=== PATIENT | female | born 1980 | race Caucasian/White ===

== ENCOUNTER → 2017-04-16 | Outpatient (CLI) | payer OTHER ==
--- NOTE | 2017-04-16 22:00 | US ---
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 enlarged gland GLAND SIZE: Right Lobe: 5.6 x 1.8 x 1.5 cm Overall Parenchyma: heterogenous Left Lobe: 4.6 x 1.7 x 1.4 cm Overall Parenchyma: heterogeneous Isthmus Thickness: 0.4 cm NODULES RIGHT: # of nodules measured on right: 1 1. 0.7 X 0.7 x 0.6 cm hypoechoic solid nodule at the mid pole with well-defined margins. This nodu le is wider than tall and shows intranodular vascularity. Prior size: [employer] ACCOUNT[employer] LEFT: # of nodules measured on left: 0 ISTHMUS: # of nodules measured in the isthmus: 0 Bilateral neck scanned, no evidence of lymphadenopathy. There is redemonstration of heterogeneous thyroid gland which is prominent to slightly enlarged in si ze with 7 mm hypoechoic nodule marked infarct right thyroid lobe on current study. Smaller nodules on prior exam are less well seen on current study. No new suspicious nodules are evident. IMPRESSION: Heterogeneous thyroid upper limits of normal to slightly enlarged in size with less pronounced nodule s on current study. No new greater than 1 cm solid or cystic nodules are seen bilaterally.
== END | disposition home or self-care (01) ==
LOC: RADUSWWP 16:02
PROVIDERS: ATTEND Obstetrics & Gynecology
DX: E01.0 Iodine-deficiency related diffuse (endemic) goiter (principal)
CPT/HCPCS: 36415; 76536; 84432; 84439; 84443; 84481

== ENCOUNTER → 2017-09-09 | Outpatient (CLI) | payer OTHER ==
--- NOTE | 2017-09-10 14:21 | US ---
EXAMINATION TYPE: US pelvic complete DATE OF EXAM: 09/09/2017 COMPARISON: US 09/05/2012 CLINICAL HISTORY: R10.9 Abdominal/pelvic pain. Patient on Depo shot, no period in 3 years due to emil h control use. TECHNIQUE: . Transabdominal sonographic images of the pelvis were acquired. Date of LMP: 3 years ago EXAM MEASUREMENTS: Uterus: 9.3 x 3.4 x 4.3 cm Endometrial Stripe: 0.5 cm Right Ovary: 2.1 x 1.7 x 2.1 cm Left Ovary: 2.5 x 1.5 x 2.1 cm 1. Uterus: Anteverted wnl 2. Endometrium: wnl 3. Right Ovary: wnl 4. Left Ovary: wnl 5. Bilateral Adnexa: wnl 6. Posterior cul-de-sac: wnl IMPRESSION: 1. Normal pelvic ultrasound
== END | disposition home or self-care (01) ==
LOC: RADUSWWP 16:00
PROVIDERS: ATTEND Internal Medicine
DX: R10.9 Unspecified abdominal pain (principal)
CPT/HCPCS: 76856

== ENCOUNTER → 2019-12-27 | Outpatient (CLI) | payer OTHER ==
--- NOTE | 2019-12-27 16:19 | US ---
EXAMINATION TYPE: US venous doppler duplex LE LT DATE OF EXAM: 12/27/2019 4:04 PM COMPARISON: NONE CLINICAL HISTORY: 39-year-old female M79.662 PAIN LT LOWER LIMB, R22.42 SWELLING LT LOWER LEG. Pain a nd swelling since surgery on November 01, no history of DVT SIDE PERFORMED: left TECHNIQUE: The lower extremity deep venous system is examined utilizing real time linear array sonog jacqueline with graded compression, doppler sonography and color-flow sonography. FINDINGS: VESSELS IMAGED: External Iliac Vein (EIV) Common Femoral Vein Deep Femoral Vein Greater Saphenous Vein * Femoral Vein Popliteal Vein Small Saphenous Vein * Proximal Calf Veins (* superficial vessels) Left Leg: Negative for DVT IMPRESSION: No evidence for DVT within the left lower extremity imaged from the groin to the upper calf.
== END | disposition home or self-care (01) ==
LOC: RADUSWWP 15:40
PROVIDERS: ATTEND Internal Medicine
DX: M79.662 Pain in left lower leg (principal); R22.42 Localized swelling, mass and lump, left lower limb

== ENCOUNTER → 2020-01-18 | Outpatient (CLI) | payer OTHER ==
--- NOTE | 2020-01-19 08:40 | US ---
EXAMINATION TYPE: US pelvis complete transvag DATE OF EXAM: 01/18/2020 COMPARISON: 09/09/2017 CLINICAL HISTORY: 39-year-old female N93.8 abnormal uterine and vaginal bleeding. TECHNIQUE: Transabdominal sonographic images of the pelvis were acquired. Transvaginal sonographic images were medically necessary to better assess the following anatomy: Endometrium Date of LMP: Irregular cycles, patient states she has 2 cycles a month FINDINGS: EXAM MEASUREMENTS: Uterus: 9.5 x 4.1 x 5.0 cm Endometrial Stripe: Not well delineated, unable to accurately measure Right Ovary: 3.0 x 2.4 x 2.5 cm Left Ovary: 3.2 x 2.7 x 3.0 cm 1. Uterus: Anteverted with Heterogeneous myometrium 2. Endometrium: Multiple small cystic areas visualized within and adjacent to the endometrium. 3. Right Ovary: Cystic area visualized measuring 2.4 x 2.0 x 2.3 cm 4. Left Ovary: Cystic area visualized 2.2 x 1.7 x 1.9 cm 5. Bilateral Adnexa: wnl 6. Posterior cul-de-sac: wnl IMPRESSION: 1. Tiny cystic areas along and adjacent to the endometrium. Findings may be seen with adenomyosis. Co nsider female pelvic MRI to better assess the junctional anatomy if indicated. 2. The endometrial stripe is not well delineated and is unable to be accurately measured by ultrasoun d. It does not appear to be abnormally thickened. 3. A dominant follicle or functional cyst in each ovary measuring up to 2.4 cm.
== END | disposition home or self-care (01) ==
LOC: RADUSWWP 15:33
PROVIDERS: ATTEND Obstetrics & Gynecology
DX: N85.8 Other specified noninflammatory disorders of uterus (principal); N83.292 Other ovarian cyst, left side; N83.291 Other ovarian cyst, right side
CPT/HCPCS: 76830; 76856

== ENCOUNTER 2020-03-02 08:28 | Day surgery (SDC) | payer OTHER ==
[2020-02-29 18:02] VITALS: BMI 41.6
--- NOTE | 2020-03-01 17:03 | P.HPOB ---
History of Present Illness H&P Date: 03/01/20 Chief Complaint: Dysfunctional uterine bleeding Dulce is a 39-year-old female with dysfunctional uterine bleeding. She is scheduled for a D&C and hysteroscopy to try and elucidate the cause of her heavy bleeding. She did have an ultrasound prior to this that was nondiagnostic for the endometrium. Risks/benefits/alternatives were reviewed with patient in detail and all questions were answered for her prior to proceeding to the operative room. On physical exam vital signs are stable and afebrile. Heart regular, lungs clear, extremities without pain. Abdomen soft and positive bowel sounds are noted. Pelvic exam is otherwise unremarkable. Past Medical History Past Medical History: Asthma, GERD/Reflux, Hyperlipidemia, Musculoskeletal Disorder Additional Past Medical History / Comment(s): No asthma prob 2009. Lt knee surgery, ongoing pain. Irreg menses. History of Any Multi-Drug Resistant Organisms: None Reported Past Surgical History: Orthopedic Surgery Additional Past Surgical History / Comment(s): Right ganglion cyst, jesica carpal tunnel. Lt knee scope 11/02/19 Past Anesthesia/Blood Transfusion Reactions: No Reported Reaction Smoking Status: Current every day smoker - Past Family History Mother Family Medical History: Cancer Additional Family Medical History / Comment(s): ovarian cancer Sister(s) Family Medical History: Cancer Additional Family Medical History / Comment(s): ovarian cancer Medications and Allergies Home Medications Medication Instructions Recorded Confirmed Type Ibuprofen [Motrin] 800 mg PO Q8HR PRN #20 tab 05/05/16 02/29/20 Rx Omeprazole Magnesium [PriLOSEC OTC] 20 mg PO DAILY PRN 02/29/20 02/29/20 History Allergies Allergy/AdvReac Type Severity Reaction Status Date / Time metronidazole [From Flagyl] Allergy Vomiting Verified 02/29/20 17:46 Metronidazole HCl Allergy Vomiting Verified 02/29/20 17:46 [From Flagyl] Exam Osteopathic Statement: *. No significant issues noted on an osteopathic structural exam other than those noted in the History and Physical/Consult. - OBG Physical Exam Breast: both: normal (no masses) Abdomen: bowel sounds normal, no diffuse tenderness, no bruit present, no guarding noted, no hepatomegaly, no splenomegaly, no mass Vulva: both: normal Vagina: normal moisture, no discharge Cervix: no lesion, no discharge Uterus: normal size, normal contour Adnexa: both: normal Anus/Rectum: normal perianal skin, no rectal mass, no hemorrhoids, heme negative
[~2020-03-02 08:28] MED LIST: DEXAMETHASONE SOD PHOSPHATE 10 MG/ML 1 ML VIAL IV ONE; HYDROmorphone 0.5 MG/0.5 ML SYRINGE IVP PRN; KETOROLAC 15 MG/ML 1 ML VIAL IVP SCH; LACTATED RINGERS 1,000 ML IV SCH; LIDOCAINE 1% (10MG/ML) FOR IV START INTRADERMA PRN; METOCLOPRAMIDE 5 MG/ML 2 ML VIAL IVP PRN; ONDANSETRON 4 MG/2 ML VIAL IVP ONE; Pre Op ABX Message 1 EACH MISC MISCELLANE ONE; SCOPOLAMINE 1.5MG/72HR PATCH TRANSDERM ONE
[2020-03-02] MEDS ORDERED: MIDAZOLAM 2 MG/2 ML VIAL ONE (09:25)
[2020-03-02] MEDS ORDERED: PROPOFOL 10 MG/ML 20 ML VIAL IV ONE (09:25)
[2020-03-02] MEDS ORDERED: fentaNYL (PF) 50 MCG/ML 2 ML AMP ONE (09:25)
[2020-03-02] MEDS ORDERED: SUCCINYLCHOLINE CHLORIDE 100 MG/5 ML SYR IV ONE (09:25)
[2020-03-02] MEDS ORDERED: ROCURONIUM BROMIDE 10 MG/ML 5 ML VIAL IV ONE (09:25)
[2020-03-02] MEDS ORDERED: LIDOCAINE 1% INJ 10MG/ML (20 ML MDV) ONE (09:25)
[2020-03-02] MEDS ORDERED: KETOROLAC 15 MG/ML 1 ML VIAL ONE (09:25)
--- NOTE | 2020-03-02 10:08 | P.OP ---
Date of Procedure: 03/02/20 Preoperative Diagnosis: Dysfunctional uterine bleeding Postoperative Diagnosis: Same Procedure(s) Performed: D&C with hysteroscopy Anesthesia: ANH Surgeon: Remy Medina Estimated Blood Loss (ml): 3 Pathology: other (Uterine curettings) Condition: stable Disposition: same day Operative Findings: Pathology pending Description of Procedure: Dulce was taken to the operating suite where general anesthetic was found be adequate. She was prepped and draped in the normal sterile fashion and placed in dorsal lithotomy position. Initially a weighted speculum was inserted in vagina and the anterior lip of the cervix identified grasped with Allis clamp an d cervix was dilated. Camera was then inserted. No gross pathology was noted therefore camera was removed and sharp curettings of endometrium were obtained. This tissue was all collected, placed on Telfa, and sent to pathology for evaluation. All incidents were then removed. Sponge, lap, needle counts were all correct 2. Patient was then taken to the recovery room in stable and satisfactory condition. Plan - Discharge Summary Discharge Rx Participant: No New Discharge Prescriptions: New Ibuprofen [Motrin] 600 mg PO Q6HR PRN #30 tab PRN Reason: Pain No Action Ibuprofen [Motrin] 800 mg PO Q8HR PRN #20 tab PRN Reason: Pain Omeprazole Magnesium [PriLOSEC OTC] 20 mg PO DAILY PRN PRN Reason: GERD Discharge Medication List Ibuprofen [Motrin] 800 mg PO Q8HR PRN #20 tab 05/05/16 [Rx] Omeprazole Magnesium [PriLOSEC OTC] 20 mg PO DAILY PRN 02/29/20 [History] Ibuprofen [Motrin] 600 mg PO Q6HR PRN #30 tab 03/02/20 [Rx] Follow up Appointment(s)/Referral(s): Remy Medina DO [Doctor of Osteopathic Medicine] - 10 Days Activity/Diet/Wound Care/Special Instructions: No heavy lifting, limit stairs and driving, and pelvic rest. If any high temperatures, heavy bleeding, or severe pain call my office Discharge Disposition: HOME SELF-CARE
[2020-03-02 10:12] VITALS: TEMP 97.4
[2020-03-02 11:12] VITALS: RESP 18
[2020-03-02 11:33] VITALS: BP 130/69; PULSE 74
== END 2020-03-02 11:45 | disposition home or self-care (01) ==
LOC: OR 08:28
PROVIDERS: ATTEND Obstetrics & Gynecology
DX: N93.8 Other specified abnormal uterine and vaginal bleeding (principal); N92.6 Irregular menstruation, unspecified; E78.5 Hyperlipidemia, unspecified; J45.909 Unspecified asthma, uncomplicated; F41.9 Anxiety disorder, unspecified; F32.9 Major depressive disorder, single episode, unspecified; F17.200 Nicotine dependence, unspecified, uncomplicated; K21.9 Gastro-esophageal reflux disease without esophagitis; Z88.1 Allergy status to other antibiotic agents; Z80.41 Family history of malignant neoplasm of ovary
CPT/HCPCS: 81025; 88305; 58558; J2250; J1100; J2765; J2405; J2001; J3010; J1885; J0330; J2704; J1170

== ENCOUNTER → 2021-02-23 | Outpatient (CLI) | payer OTHER | END | disposition home or self-care (01) | LOC: LABWHC1 15:47 | PROVIDERS: ATTEND Obstetrics & Gynecology | DX: N92.6 Irregular menstruation, unspecified (principal) | CPT/HCPCS: 36415; 84702 ==

== ENCOUNTER → 2021-05-21 | Outpatient (CLI) | payer OTHER ==
--- NOTE | 2021-05-21 08:58 | US ---
EXAMINATION TYPE: US pelvis complete transvag DATE OF EXAM: 05/21/2021 COMPARISON: US CLINICAL HISTORY: R10.2 Pelvic pain, Amenorrhea N91.2. Patient stated had 4 months without menstrual cycle then had May LMP TECHNIQUE: Transvaginal (TV) and Transabdominal (TA) . Transabdominal sonographic images of the pel vis were acquired. Transvaginal sonographic images were medically necessary to better assess the fol lowing anatomy: endometrium and right ovary; ; HT5'7, [id number]. Date of LMP: 05/11/2021 EXAM MEASUREMENTS: Uterus: 11.4 x 6.1 x 5.2 cm Endometrial Stripe: 1.1 cm Right Ovary: 3.4 x 1.1 x 1.4 cm Left Ovary: 2.9 x 2.5 x 3.0 cm 1. Uterus: Anteverted; heterogeneous appearance to myometrium; multiple Nabothian Cysts seen in cerv ix and in NYLA with largest = 0.7 x 0.6 x 0.4cm. 2. Endometrium: multiple endometrial cysts seen with largest = 0.3 x 0.4 x 0.3cm; endometrial thickn ess is wnl for Day 10 LMP. 3. Right Ovary: multifollicular with largest as exophytic cyst = 1.4 x 1.5 x 1.4cm 4. Left Ovary: multifollicular with couple of prominent cysts seen: 1.4 x 1.3 x 1.2cm medially and a nother = 1.3 x 1.3 x 0.8cm. 5. Bilateral Adnexa: wnl 6. Posterior cul-de-sac: wnl IMPRESSION: 1. Bilateral ovarian cysts. 2. Heterogenous appearance to the endometrial canal. Endometrial thickness is appropriate.
== END | disposition home or self-care (01) ==
LOC: RADUSWWP 07:10
PROVIDERS: ATTEND Internal Medicine
DX: N83.201 Unspecified ovarian cyst, right side (principal); N83.202 Unspecified ovarian cyst, left side; N85.8 Other specified noninflammatory disorders of uterus
CPT/HCPCS: 76830; 76856

== ENCOUNTER → 2022-01-02 | Outpatient (CLI) | payer OTHER ==
[2022-01-03 02:31] LABS: Follicle Stimulating Hormone 4.3 mIU/mL; HCG,Quantitative Serum <3.0 (0.0-6.0)
== END | disposition home or self-care (01) ==
LOC: LABWHC1 15:52
PROVIDERS: ATTEND Obstetrics & Gynecology
DX: N92.0 Excessive and frequent menstruation with regular cycle (principal)
CPT/HCPCS: 36415; 83001; 84146; 84443; 84702

== ENCOUNTER → 2022-01-02 | Outpatient (CLI) | payer OTHER ==
--- NOTE | 2022-01-03 08:04 | US ---
EXAMINATION TYPE: US pelvis complete transvag DATE OF EXAM: 01/02/2022 COMPARISON: 05/21/2021 CLINICAL HISTORY: 41-year-old female N92.0 EXCESSIVE AND FREQ MENSTRUATION. TECHNIQUE: Transabdominal sonographic images of the pelvis were acquired. Transvaginal sonographic i mages were medically necessary to better assess the following anatomy: ovaries Date of LMP: October 2021 FINDINGS: EXAM MEASUREMENTS: Uterus: 10.1 x 4.6 x 5.7 cm Endometrial Stripe: 0.8 cm Right Ovary: unable to visualize Left Ovary: 4.8 x 3.9 x 3.7 cm with a volume of 36.6 mL (increased from 11.4 mL, previously). 1. Uterus: Anteverted. The myometrium is heterogeneous. There are tiny cervical nabothian cysts. 2. Endometrium: wnl 3. Right Ovary: Obscured by overlying bowel gas 4. Left Ovary: cystic areas noted, largest = 2.9 x 2.6 x 2.8cm (largest previously measured 1.4 cm) 5. Bilateral Adnexa: wnl 6. Posterior cul-de-sac: wnl IMPRESSION: 1. Heterogeneous myometrium may be technical or could reflect diffuse small fibroid change or adenomy osis. 2. Unable to visualize the right ovary. 3. Left ovary enlarged today with a volume of 37 mL (versus 11.4 mL, previously) secondary to underly ing cysts, largest measuring 2.9 cm (largest previously measured 1.4 cm). These may reflect prominent follicular change and dominant follicles. Follow-up ultrasound in 6-8 weeks to ensure involution.
== END | disposition home or self-care (01) ==
LOC: RADUSWWP 16:13
PROVIDERS: ATTEND Obstetrics & Gynecology
DX: N92.0 Excessive and frequent menstruation with regular cycle (principal); N88.8 Other specified noninflammatory disorders of cervix uteri
CPT/HCPCS: 76830; 76856

== ENCOUNTER → 2022-02-13 | Outpatient (CLI) | payer OTHER ==
[2022-02-13 11:25] VITALS: BP 169/93; PULSE 74; RESP 16; TEMP 97.8
--- NOTE | 2022-02-13 12:40 | P.PAINCN ---
History of Present Illness - Reason for Consult Consult date: 02/13/22 - History of Present Illness This is 41 years old female who was referred to [facility] pain clinic for evaluation , she had a chronic history of severe neck pain and headache, and she was diagnosed with occipital neuralgia and she was referred for occipital nerve block bilaterally, patient reported that her symptoms started more than a year ago and is constant and increased with any neck movement, she denies any initiating event and she tried [id number] Excedrin and Tylenol and Motrin without any significant benefit, and a few weeks ago she started having some right-sided facial numbness and tingling sensation, denies any motor or sensory deficit she denies any visual changes she denies any aura, she denies any hearing loss Past Medical History Past Medical History: Asthma, GERD/Reflux, Hyperlipidemia, Musculoskeletal Disorder Additional Past Medical History / Comment(s): No asthma prob 2009. Lt knee surgery, ongoing pain. Irreg menses. History of Any Multi-Drug Resistant Organisms: None Reported Past Surgical History: Orthopedic Surgery Additional Past Surgical History / Comment(s): Right ganglion cyst, jesica carpal tunnel. Lt knee scope 11/02/19 Past Anesthesia/Blood Transfusion Reactions: No Reported Reaction Smoking Status: Current every day smoker - Past Family History Mother Family Medical History: Cancer Additional Family Medical History / Comment(s): ovarian cancer Sister(s) Family Medical History: Cancer Additional Family Medical History / Comment(s): ovarian cancer Medications and Allergies Home Medications Medication Instructions Recorded Confirmed Type Ibuprofen [Motrin] 800 mg PO Q8HR PRN #20 tab 05/05/16 02/13/22 Rx Omeprazole Magnesium [PriLOSEC OTC] 20 mg PO DAILY PRN 02/29/20 02/13/22 History Ibuprofen [Motrin] 600 mg PO Q6HR PRN #30 tab 03/02/20 02/13/22 Rx Acetaminophen [Tylenol Extra 500 mg PO Q12HR 02/13/22 02/13/22 History Strength] Aspirin/Acetaminophen/Caffeine 1 each PO Q12HR 02/13/22 02/13/22 History [Excedrin Migraine Caplet] Allergies Allergy/AdvReac Type Severity Reaction Status Date / Time metronidazole [From Flagyl] Allergy Vomiting Verified 02/13/22 11:25 Metronidazole HCl Allergy Vomiting Verified 02/13/22 11:25 [From Flagyl] Physical Exam Vitals: Vital Signs Temp Pulse Resp BP Pulse Ox 02/13/22 11:18 97.8 F 74 16 169/93 96 Intake and Output 02/12/22 02/13/22 02/13/22 22:59 06:59 14:59 Other: Weight 118.388 kg Physical Examinations : -Constitutiona : Cooperative , not in acute distress . -HEENT : nech : supple , no Lymphadenopathy , normal thyroid size . : eyes : no ptosis , no icterus, no photophobia . - neurologic : Cranial nerve II to XII intact , no focal neurological deffecit . -psychatric : alert , oriented X 3 , appropriate affect , intact judgment and insight . -Lymphatic : no Lymphadenopathy . - musculoskeltal : Cervical Spine motor stregnth in the deltoid and biceps, normal right side , normal Left side motor stregnth biceps and the wrist extensors normal right side ,normal left side . motor stregnth in the triceps muscle . normal Right side , normal Left side deep tendon reflexes normal at the biceps , normal at Brachioradialis , normal at triceps. cervical facet loading test: Positive Bilaterally tenderness over the occipital nerves bilaterally. Decreased sensation in the right side of the face Lumber spine moter stegnth lower extremities ,thigh and legs 5/5 Right side , 5/5 Left side y Results Comments: MRI of the brain = review and it was not significant for any intracranial abnormalities. Assessment and Plan Plan: Assessment and plan=1-occipital neuralgia bilaterally. 2-cervicogenic headache. 3-cervical spondylosis. she could benefit from bilateral occipital nerve block. Procedure risk and benefits and alternatives discussed with the patient she agreed with the preceding Time with Patient: Greater than 30 PQRS Measure Charge Sheet Mode of Arrival: Ambulatory - Pain Location Bilateral Head Non-Pharmacological Interventions: Chiropractic Treatment, Heat, Home Exercise, Ice, Inactivity, Reduce Environmental Stimuli, Relaxation Technique, Stretching Pharmacological Interventions: PRN Medication PQRS Narrative: Smoking Status Current every day smoker Blood Pressure 169/93 Pain Intensity [Bilateral Head 5 ] Scale Used Numeric (1 - 10) Hx Alcohol Use (MH) No Home Medications: Ambulatory Orders Ibuprofen [Motrin] 800 mg PO Q8HR PRN #20 tab 05/05/16 Omeprazole Magnesium [PriLOSEC OTC] 20 mg PO DAILY PRN 02/29/20 Ibuprofen [Motrin] 600 mg PO Q6HR PRN #30 tab 03/02/20 Acetaminophen [Tylenol Extra Strength] 500 mg PO Q12HR 02/13/22 Aspirin/Acetaminophen/Caffeine [Excedrin Migraine Caplet] 1 each PO Q12HR 02/13/22
== END ==
LOC: PNWHC3 10:52
PROVIDERS: ATTEND Specialist
DX: M54.81 Occipital neuralgia (principal); M47.812 Spondylosis without myelopathy or radiculopathy, cervical region; F17.200 Nicotine dependence, unspecified, uncomplicated; J45.909 Unspecified asthma, uncomplicated; E78.5 Hyperlipidemia, unspecified; Z88.1 Allergy status to other antibiotic agents
CPT/HCPCS: 99211

== ENCOUNTER 2022-03-14 11:49 | Day surgery (SDC) | payer OTHER ==
[2022-03-12 15:00] VITALS: BMI 40.7
[2022-03-14 13:11] VITALS: TEMP 97.7
[2022-03-14] MEDS ORDERED: LACTATED RINGERS 1,000 ML IV ONE (13:20)
[2022-03-14] MEDS ORDERED: fentaNYL (PF) 50 MCG/ML 2 ML AMP ONE (13:30)
[2022-03-14] MEDS ORDERED: MIDAZOLAM 2 MG/2 ML VIAL ONE (13:30)
[2022-03-14] MEDS ORDERED: ROPIVACAINE 5 MG/ML 20 ML AMPULE ONE (13:30)
[2022-03-14] MEDS ORDERED: methylPREDNISolone ACETATE 80 MG/ML 1 ML VIAL ONE (13:30)
--- NOTE | 2022-03-14 13:40 | P.PCN ---
Date of Procedure: 03/14/22 Procedure(s) Performed: Preoperative diagnoses= 1- Greater occipital neuralgia. 2-cervicogenic headache. 3-cervical spondylosis Postoperative diagnoses= same as preoperative diagnosis. Procedure= Bilateral Greater occipital nerve block Anesthesia= moderate sedation with Versed 2 mg and fentanyl 100 micrograms Sedation start time : 1331 . Sedation end time : 1339 . Estimated blood loss=minimal. Procedure indication= the patient had a history of severe chronic neck pain ,and headache, diagnosed with occipital neuralgia exam was positive for severe tenderness over the occipital nerve bilaterally, she will be a good candidate occipital nerve block, patient failed conservative management Procedure description= the patient was seen and identified in the preoperative holding area, risks and benefits and alternative of the procedure and possible c omplications discussed with the patient, and he agreed with the preceding, patient signed the consent, an IV was started, and vital signs were monitored and were stable throughout the procedure, patient was placed in the sitting position or table and the neck area was prepped and draped with a sterile fashion, vital signs were closely monitored during the procedure, 25-gauge needle advanced 1 inch lateral to the occipital protuberance on the right side, at the location of the right occipital nerve , then after negative aspiration for heme and CSF and there was no paresthesia during the injection, 6 ml of Robivacaine 0.5% and 40 mg of Depo-Medrol injected after negative aspiration, the needle removed, and the entire same procedure was repeated for the left Greater occipital nerve. Patient tolerated the procedure well without any complication, The patient returned to supine position after the back was cleaned and a Band- Aid applied, the patient transported to recovery room in stable condition and he was monitored for 30 minutes before he was discharged home and then patient was reexamined before going home and patient was discharged in stable condition and patient will follow up with the pain clinic in a few weeks.
[2022-03-14] MEDS ORDERED: IV FLUID CONTINUATION 900 ML IV ONE (13:43)
[2022-03-14 14:01] VITALS: BP 132/83; PULSE 71; RESP 20
== END 2022-03-14 14:22 | disposition home or self-care (01) ==
LOC: ORPAIN 11:49
PROVIDERS: ATTEND Specialist
DX: M54.81 Occipital neuralgia (principal); M47.812 Spondylosis without myelopathy or radiculopathy, cervical region; G44.86 Cervicogenic headache; Z88.1 Allergy status to other antibiotic agents
CPT/HCPCS: 81025; 64405; 99152; J2250; J1040; J3010; J2795

== ENCOUNTER → 2022-04-11 | Outpatient (CLI) | payer OTHER ==
[2022-04-11 11:55] VITALS: BP 160/78; PULSE 68; RESP 18; TEMP 98.1
--- NOTE | 2022-04-11 15:04 | P.PAINPG ---
PQRS Measure Charge Sheet Comment: A 41 yr old female with a history of severe and chronic neck pain secondary to cervical spondylosis with BL occipital neuralgia/ cervicogenic LUNA presents today for evaluation s/p JUS injection. Pt states she developed 50% pain relief x 4 wks s/p procedure. Pain level is currently at 3/10 in intensity, constant, localized in the base of the head, achy throbbing in character w shooting towards the BL scalp and forehead. Pain is provoked by laying in one position for periods of 2 hrs or more. Pain is alleviated with medications, laying supine in the dark, hot showers w Reece's topical, repositioning and rest. Interventional pain procedures completed include BL JUS Patient is currently on Excedrin, Tylenol, Ibuprofen Patient denies any side effects of the medication(s), denies excessive drowsiness or sleepiness, denies suicidal ideation and reports that the current pain medication is helping to control the pain and improve activities of daily living. Patient denies any motor or sensory deficits. Patient denies any fever or night sweats, denies any change in the bowel movements or urination. Physical Examination: -Constitutional: Cooperative. Not in acute distress . - Neurologic: Cranial nerve II to XII intact. No focal neurological deficits. - Psychatric: Alert & oriented x 3. Matching mood & appropriate affect. Judgment and insight intact. - Musculoskeletal: Cervical spine: +BL JUS TTP Muscle bulk/ tone/ strength in the bilateral upper extremities normal Vertebral body tenderness to palpation over Spurling test positive Distraction test positive Facet loading test positive Thoracic spine Muscle bulk / tone/ strength in the bilateral paraspinal muscles normal Vertebral body tender to palpation over Facet loading test positive Lumbar spine: Motor bulk/ tone/ strength lower extremities , thigh and legs : 5/5 Deep tendon reflexes : Normal Knee Jerk. Normal Ankle Jerk . Vertebral body tenderness to palpation over Lumbar Facet Loading Test positive Straight Leg Raise: positive at 30 degrees right side/ left side Gaenslen's Test positive Sacral spine : Severe tenderness over the Sacroiliac joint: right side / left side Range of motion: Flexion of the lumbar spine <60 degrees Range of motion: Extension of the lumbar spine <20 degrees Gaenslen's Test positive Theodore's Test positive Marlon test: positive right side / left side Thigh Thrust Test Sacral Thrust Test Assessment and plan: Chronic neck pain secondary to cervical spondylosis, BL occipital neuralgia, cervicogenic LUNA Recommendation of BL JUS injection #2. May need a series, up to 4 within a 12 mo period, for optimal pain relief. Risks, benefits of procedure discussed and pt verbalized understanding. Admits to anticoagulant use or medical history of diabetes. Protocol for discontinuation / continuation of medications erma procedure discussed. All patient questions answered I have spent less than 30 minutes on patient care today. Dr Cruz was available by phone for the evaluation of this patient. The time was used to review the medical records including relevant urine studies and Prescription history (MAPs), review of the available imaging, evaluation and examination of the patient, coordination of care with the medical staff and if applicable referring physicians, as well as creation of the medical record PQRS Narrative: Smoking Status Current every day smoker Hx Alcohol Use (MH) No Home Medications: Ambulatory Orders Omeprazole Magnesium [PriLOSEC OTC] 20 mg PO DAILY PRN 02/29/20 Acetaminophen [Tylenol Extra Strength] 500 mg PO Q12HR PRN 02/13/22 Aspirin/Acetaminophen/Caffeine [Excedrin Migraine Caplet] 1 each PO Q12HR PRN 02/13/22 Folic Acid 1 mg PO DAILY 03/12/22 Ibuprofen [Motrin] 800 mg PO BID PRN 03/12/22 Medroxyprogesterone Acetate 5 mg PO DAILY 03/12/22 amLODIPine BESYLATE 2.5 mg PO QAM 03/12/22 Controlled Substance Measures - Controlled Substance Measures Is patient prescribed a controlled substance at discharge?: No
== END | disposition home or self-care (01) ==
LOC: PNWHC3 09:39
PROVIDERS: ATTEND Specialist
DX: G44.86 Cervicogenic headache (principal); M54.81 Occipital neuralgia; M47.892 Other spondylosis, cervical region
CPT/HCPCS: 99211

== ENCOUNTER 2022-06-27 08:52 | Day surgery (SDC) | payer OTHER ==
[2022-05-17 10:50] VITALS: BMI 40.7
[~2022-06-27 08:52] MED LIST changes: -DEXAMETHASONE SOD PHOSPHATE 10 MG/ML 1 ML VIAL IV ONE; -HYDROmorphone 0.5 MG/0.5 ML SYRINGE IVP PRN; -KETOROLAC 15 MG/ML 1 ML VIAL IVP SCH; -METOCLOPRAMIDE 5 MG/ML 2 ML VIAL IVP PRN; -ONDANSETRON 4 MG/2 ML VIAL IVP ONE; -Pre Op ABX Message 1 EACH MISC MISCELLANE ONE; -SCOPOLAMINE 1.5MG/72HR PATCH TRANSDERM ONE
[2022-06-27 09:09] VITALS: TEMP 97.5
[2022-06-27] MEDS ORDERED: ROPIVACAINE 5 MG/ML 20 ML AMPULE ONE (09:14)
[2022-06-27] MEDS ORDERED: methylPREDNISolone ACETATE 40 MG/ML 1 ML VIAL ONE (09:14)
[2022-06-27] MEDS ORDERED: MIDAZOLAM 2 MG/2 ML VIAL ONE (09:14)
[2022-06-27] MEDS ORDERED: fentaNYL (PF) 50 MCG/ML 2 ML AMP ONE (09:14)
--- NOTE | 2022-06-27 09:23 | P.PCN ---
Date of Procedure: 06/27/22 Procedure(s) Performed: Preoperative diagnoses= 1- Greater occipital neuralgia. 2-cervicogenic headache. 3-cervical spondylosis Postoperative diagnoses= same as preoperative diagnosis. Procedure= Bilateral Greater occipital nerve block Anesthesia= moderate sedation with Versed 2 mg and fentanyl 100 micrograms Sedation start time : 915 . Sedation end time : 920 . Estimated blood loss=minimal. Procedure indication= the patient had a history of severe chronic neck pain ,and headache, diagnosed with occipital neuralgia exam was positive for severe tenderness over the occipital nerve bilaterally, she will be a good candidate occipital nerve block, patient failed conservative management Procedure description= the patient was seen and identified in the preoperative holding area, risks and benefits and alternative of the procedure and possible complications discussed with the patient, and he agreed with the preceding, patient signed the consent, an IV was started, and vital signs were monitored and were stable throughout the procedure, patient was placed in the sitting position or table and the neck area was prepped and draped with a sterile fashion, vital signs were closely monitored during the procedure, 25-gauge needle advanced 1 inch lateral to the occipital protuberance on the right side, at the location of the right occipital nerve , then after negative aspiration for heme and CSF and there was no paresthesia during the injection, 6 ml of Robivacaine 0.5% and 20 mg of Depo-Medrol injected after negative aspiration, the needle removed, and the entire same procedure was repeated for the left Greater occipital nerve. Patient tolerated the procedure well without any complication, The patient returned to supine position after the back was cleaned and a Band- Aid applied, the patient transported to recovery room in stable condition and he was monitored for 30 minutes before he was discharged home and then patient was reexamined before going home and patient was discharged in stable condition and patient will follow up with the pain clinic in a few weeks.
[2022-06-27] MEDS ORDERED: IV FLUID CONTINUATION 1,000 ML IV ONE ×2 (09:27)
[2022-06-27 09:37] VITALS: RESP 18
[2022-06-27 09:49] VITALS: BP 135/84; PULSE 73
== END 2022-06-27 09:53 | disposition home or self-care (01) ==
LOC: ORPAIN 08:52
PROVIDERS: ATTEND Specialist
DX: M54.81 Occipital neuralgia (principal); G44.86 Cervicogenic headache; M47.812 Spondylosis without myelopathy or radiculopathy, cervical region; G89.29 Other chronic pain; Z88.1 Allergy status to other antibiotic agents
CPT/HCPCS: 81025; 64405; J2250; J1030; J3010; J2795

== ENCOUNTER → 2023-02-13 | Outpatient (CLI) | payer OTHER ==
[2023-02-13 11:32] VITALS: BP 126/84; PULSE 66; RESP 16; TEMP 97.9
--- NOTE | 2023-02-13 13:19 | P.PAINPG ---
PQRS Measure Charge Sheet Comment: A 41 yr old female with a history of severe and chronic neck pain secondary to cervical spondylosis with BL occipital neuralgia/ cervicogenic LUNA presents today for evaluation s/p JUS injection. Pt states she developed 100% pain relief x 2 wks s/p procedure. Pain level is provoked at 9/10 in intensity, constant, localized in the base of the head, achy throbbing in character w shooting towards the BL scalp and forehead. Pain is provoked by laying in one position for periods of 2 hrs or more. Pain is alleviated with medications, chiropractic treatments semi monthly x 1 yr w last visit in Sep 2022, laying supine in the dark, hot showers w Reece's topical, heat, repositioning and rest. Oswestry axial pain score of 23. Interventional pain procedures completed include BL JUS x1 Patient is currently on Excedrin, Tylenol, Ibuprofen Patient denies any side effects of the medication(s), denies excessive drowsiness or sleepiness, denies suicidal ideation and reports that the current pain medication is helping to control the pain and improve activities of daily living. Patient denies any motor or sensory deficits. Patient denies any fever or night sweats, denies any change in the bowel movements or urination. Physical Examination: -Constitutional: Cooperative. Not in acute distress . - Neurologic: Cranial nerve II to XII intact. No focal neurological deficits. - Psychatric: Alert & oriented x 3. Matching mood & appropriate affect. Judgment and insight intact. - Musculoskeletal: Cervical spine: +BL JUS TTP Muscle bulk/ tone/ strength in the bilateral upper extremities normal Vertebral body tenderness to palpation over Spurling test positive Distraction test positive Facet loading test positive Thoracic spine Muscle bulk / tone/ strength in the bilateral paraspinal muscles normal Vertebral body tender to palpation over Facet loading test positive Lumbar spine: Motor bulk/ tone/ strength lower extremities , thigh and legs : 5/5 Deep tendon reflexes : Normal Knee Jerk. Normal Ankle Jerk . Vertebral body tenderness to palpation over Lumbar Facet Loading Test positive Straight Leg Raise: positive at 30 degrees right side/ left side Gaenslen's Test positive Sacral spine : Severe tenderness over the Sacroiliac joint: right side / left side Range of motion: Flexion of the lumbar spine <60 degrees Range of motion: Extension of the lumbar spine <20 degrees Gaenslen's Test positive Theodore's Test positive Marlon test: positive right side / left side Thigh Thrust Test Sacral Thrust Test Assessment and plan: Chronic neck pain secondary to cervical spondylosis, BL occipital neuralgia, cervicogenic LUNA Recommendation of BL JUS injection #2. May need a series, up to 4 within a 12 mo period, for optimal pain relief. Risks, benefits of procedure discussed and pt verbalized understanding. Admits to anticoagulant use or medical history of diabetes. Protocol for discontinuation / continuation of medications erma procedure discussed. All patient questions answered I have spent less than 30 minutes on patient care today. Dr Cruz was available by phone for the evaluation of this patient. The time was used to review the medical records including relevant urine studies and Prescription history (MAPs), review of the available imaging, evaluation and examination of the patient, coordination of care with the medical staff and if applicable referring physicians, as well as creation of the medical record PQRS Narrative: Smoking Status Current every day smoker Hx Alcohol Use (MH) No Home Medications: Ambulatory Orders Omeprazole Magnesium [PriLOSEC OTC] 20 mg PO DAILY PRN 02/29/20 Acetaminophen [Tylenol Extra Strength] 500 mg PO Q12HR PRN 02/13/22 Aspirin/Acetaminophen/Caffeine [Excedrin Migraine Caplet] 1 each PO Q12HR PRN 02/13/22 Ibuprofen [Motrin] 800 mg PO BID PRN 03/12/22 Controlled Substance Measures - Controlled Substance Measures Is patient prescribed a controlled substance at discharge?: No
== END ==
LOC: PNWHC3 09:39
PROVIDERS: ATTEND Specialist
DX: M47.812 Spondylosis without myelopathy or radiculopathy, cervical region (principal); M54.81 Occipital neuralgia; G44.86 Cervicogenic headache; F17.200 Nicotine dependence, unspecified, uncomplicated; G89.29 Other chronic pain; Z79.82 Long term (current) use of aspirin; Z88.8 Allergy status to other drugs, medicaments and biological substances
CPT/HCPCS: 99211

== ENCOUNTER → 2023-04-03 | Outpatient (CLI) | payer OTHER ==
[2023-04-03 12:33] VITALS: BP 126/73; PULSE 76; RESP 15; TEMP 98.2
--- NOTE | 2023-04-03 13:51 | P.PAINPG ---
PQRS Measure Charge Sheet Comment: A 41 yr old female with a history of severe and chronic neck pain x 5 yrs secondary to cervical spondylosis with BL occipital neuralgia/ cervicogenic LUNA presents today for evaluation s/p JUS injection #2. Pt states she developed 80% pain relief x 4 wks s/p procedure. Pain level is provoked at 6/10 in inte nsity, constant, localized in the base of the head, achy throbbing in character w shooting towards the forehead. Pain is provoked by laying in one position for periods of 2 hrs or more. Pain is alleviated with medications, chiropractic treatments semi monthly x 1 yr w last visit in Sep 2022, laying supine in the dark, hot showers w Reece's topical, heat, repositioning and rest. Manual traction performed in the exam room effective in reducing pain. Oswestry axial pain score of 22. Interventional pain procedures completed include BL JUS x2 Patient is currently on Excedrin, Tylenol, Ibuprofen Patient denies any side effects of the medication(s), denies excessive drowsiness or sleepiness, denies suicidal ideation and reports that the current pain medication is helping to control the pain and improve activities of daily living. Patient denies any motor or sensory deficits. Patient denies any fever or night sweats, denies any change in the bowel movements or urination. Physical Examination: -Constitutional: Cooperative. Not in acute distress . - Neurologic: Cranial nerve II to XII intact. No focal neurological deficits. - Psychatric: Alert & oriented x 3. Matching mood & appropriate affect. Judgment and insight intact. - Musculoskeletal: Cervical spine: +BL JUS TTP Muscle bulk/ tone/ strength in the bilateral upper extremities normal Vertebral body tenderness to palpation over Spurling test positive Distraction test positive Facet loading test positive Thoracic spine Muscle bulk / tone/ strength in the bilateral paraspinal muscles normal Vertebral body tender to palpation over Facet loading test positive Lumbar spine: Motor bulk/ tone/ strength lower extremities , thigh and legs : 5/5 Deep tendon reflexes : Normal Knee Jerk. Normal Ankle Jerk . Vertebral body tenderness to palpation over Lumbar Facet Loading Test positive Straight Leg Raise: positive at 30 degrees right side/ left side Gaenslen's Test positive Sacral spine : Severe tenderness over the Sacroiliac joint: right side / left side Range of motion: Flexion of the lumbar spine <60 degrees Range of motion: Extension of the lumbar spine <20 degrees Gaenslen's Test positive Theodore's Test positive Marlon test: positive right side / left side Thigh Thrust Test Sacral Thrust Test Assessment and plan: Chronic neck pain secondary to cervical spondylosis, BL occipital neuralgia, cervicogenic LUNA Recommendation of PT x 6 wks Dx M54.81. All patient questions answered I have spent less than 30 minutes on patient care today. Dr Cruz was available by phone for the evaluation of this patient. The time was used to review the medical records including relevant urine studies and Prescription history (MAPs), review of the available imaging, evaluation and examination of the patient, coordination of care with the medical staff and if applicable referring physicians, as well as creation of the medical record PQRS Narrative: Smoking Status Current every day smoker Hx Alcohol Use (MH) No Home Medications: Ambulatory Orders Omeprazole Magnesium [PriLOSEC OTC] 20 mg PO DAILY PRN 02/29/20 Acetaminophen [Tylenol Extra Strength] 500 mg PO Q12HR PRN 02/13/22 Aspirin/Acetaminophen/Caffeine [Excedrin Migraine Caplet] 1 each PO Q12HR PRN 02/13/22 Ibuprofen [Motrin] 800 mg PO BID PRN 03/12/22 Pantoprazole [Protonix] 40 mg PO DAILY 03/03/23 Rosuvastatin [Crestor] 10 mg PO DAILY 03/03/23 Vortioxetine Hydrobromide [Trintellix] 5 mg PO DAILY 03/03/23 amLODIPine [Norvasc] 5 mg PO DAILY 03/03/23 Controlled Substance Measures - Controlled Substance Measures Is patient prescribed a controlled substance at discharge?: No
== END ==
LOC: PNWHC3 10:12
PROVIDERS: ATTEND Specialist
DX: M54.81 Occipital neuralgia (principal); G89.29 Other chronic pain; G44.86 Cervicogenic headache; F17.200 Nicotine dependence, unspecified, uncomplicated; M47.812 Spondylosis without myelopathy or radiculopathy, cervical region; Z79.82 Long term (current) use of aspirin; Z88.1 Allergy status to other antibiotic agents; Z88.8 Allergy status to other drugs, medicaments and biological substances
CPT/HCPCS: 99211

== ENCOUNTER → 2023-05-15 | Outpatient (CLI) | payer OTHER ==
[2023-05-15 12:38] VITALS: BP 127/82; PULSE 85; RESP 16; TEMP 98.2
--- NOTE | 2023-05-15 15:35 | P.PAINPG ---
PQRS Measure Charge Sheet Comment: A 41 yr old female with a history of severe and chronic neck pain x 5 yrs secondary to cervical spondylosis with BL occipital neuralgia/ cervicogenic LUNA presents today for evaluation. Pain level is provoked at 2/10 in intensity, constant, localized in the base of the head, predominantly axial, achy throbbing in character w occasional shooting towards the forehead. Pain is provoked by laying in one position for periods of 2 hrs or more. Pain is alleviated with PT x 4-5 wks which she is currently in, medications, chiropractic treatments semi monthly x 1 yr w last visit in Sep 2022, laying supine in the dark, hot showers w Reece's topical, heat, repositioning and rest. Manual traction performed in the exam room effective in reducing pain. Cervical disability pain score of 22. Interventional pain procedures completed include BL JUS x2 Patient is currently on Excedrin, Tylenol, Ibuprofen Patient denies any side effects of the medication(s), denies excessive drowsiness or sleepiness, denies suicidal ideation and reports that the current pain medication is helping to control the pain and improve activities of daily living. Patient denies any motor or sensory deficits. Patient denies any fever or night sweats, denies any change in the bowel movements or urination. Physical Examination: -Constitutional: Cooperative. Not in acute distress . - Neurologic: Cranial nerve II to XII intact. No focal neurological deficits. - Psychatric: Alert & oriented x 3. Matching mood & appropriate affect. [place] gment and insight intact. - Musculoskeletal: Cervical spine: Muscle bulk/ tone/ strength in the bilateral upper extremities normal Vertebral body tenderness to palpation over C6 Spurling test positive Distraction test positive Facet loading test positive Thoracic spine Muscle bulk / tone/ strength in the bilateral paraspinal muscles normal Vertebral body tender to palpation over Facet loading test positive Lumbar spine: Motor bulk/ tone/ strength lower extremities , thigh and legs : 5/5 Deep tendon reflexes : Normal Knee Jerk. Normal Ankle Jerk . Vertebral body tenderness to palpation over Lumbar Facet Loading Test positive Straight Leg Raise: positive at 30 degrees right side/ left side Gaenslen's Test positive Sacral spine : Severe tenderness over the Sacroiliac joint: right side / left side Range of motion: Flexion of the lumbar spine <60 degrees Range of motion: Extension of the lumbar spine <20 degrees Gaenslen's Test positive Theodore's Test positive Marlon test: positive right side / left side Thigh Thrust Test Sacral Thrust Test Assessment and plan: Chronic neck pain secondary to cervical spondylosis, BL occipital neuralgia, cervicogenic LUNA Recommendation of x-ray cervical spine M50.30 May need additional testing if indicated. All patient questions answered I have spent less than 30 minutes on patient care today. Dr Cruz was available by phone for the evaluation of this patient. The time was used to review the medical records including relevant urine studies and Prescription history (MAPs), review of the available imaging, evaluation and examination of the patient, coordination of care with the medical staff and if applicable referring physicians, as well as creation of the medical record PQRS Narrative: Smoking Status Current every day smoker Hx Alcohol Use (MH) No Home Medications: Ambulatory Orders Omeprazole Magnesium [PriLOSEC OTC] 20 mg PO DAILY PRN 02/29/20 Acetaminophen [Tylenol Extra Strength] 500 mg PO Q12HR PRN 02/13/22 Aspirin/Acetaminophen/Caffeine [Excedrin Migraine Caplet] 1 each PO Q12HR PRN 02/13/22 Ibuprofen [Motrin] 800 mg PO BID PRN 03/12/22 Pantoprazole [Protonix] 40 mg PO DAILY 03/03/23 Rosuvastatin [Crestor] 10 mg PO DAILY 03/03/23 Vortioxetine Hydrobromide [Trintellix] 5 mg PO DAILY 03/03/23 amLODIPine [Norvasc] 5 mg PO DAILY 03/03/23 Controlled Substance Measures - Controlled Substance Measures Is patient prescribed a controlled substance at discharge?: No
== END ==
LOC: PNWHC3 09:49
PROVIDERS: ATTEND Specialist
DX: M54.81 Occipital neuralgia (principal); M47.812 Spondylosis without myelopathy or radiculopathy, cervical region; G44.86 Cervicogenic headache; F17.200 Nicotine dependence, unspecified, uncomplicated; Z88.5 Allergy status to narcotic agent; Z88.1 Allergy status to other antibiotic agents
CPT/HCPCS: 99211

== ENCOUNTER → 2023-05-23 | Outpatient (CLI) | payer OTHER ==
--- NOTE | 2023-05-23 12:38 | XR ---
EXAMINATION TYPE: XR cervical spine limited DATE OF EXAM: 05/23/2023 11:12 AM CLINICAL INDICATION:Female, 42 years old with history of M50.30; COMPARISON: None TECHNIQUE: The cervical spine was imaged in frontal, lateral, and odontoid. FINDINGS: The osseous structures show normal alignment without evidence of an acute fracture. There are osteoph ytes noted in the cervical spine at C4-C5 anteriorly with cervical spine on the anterior and lateral aspects of the vertebral bodies. The intervertebral disk spaces are narrowed at multiple levels Pedic les are intact. Soft tissues are within normal limits. The odontoid appears intact. IMPRESSION: 1. No fracture or dislocation. 2. Mild degenerative disc disease changes of the cervical spine.
== END | disposition home or self-care (01) ==
LOC: RADXRMAIN 10:46
PROVIDERS: ATTEND Physician Assistant Medical
DX: M50.30 Other cervical disc degeneration, unspecified cervical region (principal)
CPT/HCPCS: 72040

== ENCOUNTER → 2024-04-16 | Outpatient (CLI) | payer OTHER ==
--- NOTE | 2024-04-16 12:58 | USB ---
Patient History: 11/28/2014, Benign Core Biopsy on the right side. 03/29/2014, US discontinued breast bx RT on the right side. Maternal aunt had breast cancer, age 40. Risk Values: Yamileth 5 year model risk: 0.7%. NCI Lifetime model risk: 7.9%. Technique: Method: Targeted. Findings: The upper outer quadrant of the left breast, the axilla of the left breast and the retroareolar of the left breast were scanned. No solid or cystic masses are identified.. Attention is paid to the upper outer quadrant posterior position 2 cm nipple. No discrete abnormality to correlate with the mammogram is identified. Note is made of benign-appearing axillary lymph nodes. Overall Assessment: Benign, BI-RAD 2 Management: Surgical Consultation of the left breast. Diagnostic Mammogram of the left breast in 3 months. A clinical breast exam by your physician is recommended on an annual basis and results should be correlated with mammographic findings. This exam should not preclude additional follow-up of suspicious palpable abnormalities. Results were given to the patient verbally at the time of exam. [facility], , 04/16/2024 12:54 PM. Electronically signed and approved by: Vic Bowers D.O. Radiologis
== END | disposition home or self-care (01) ==
LOC: RADMAMWWP 12:09
PROVIDERS: ATTEND Surgery
DX: R92.8 Other abnormal and inconclusive findings on diagnostic imaging of breast (principal)
CPT/HCPCS: 77065; 76642; G0279; 77061

== ENCOUNTER → 2024-04-16 | Outpatient (CLI) | payer OTHER ==
[2024-04-16 11:36] VITALS: BP 133/83; PULSE 58; RESP 17; TEMP 97.7
--- NOTE | 2024-04-16 11:45 | P.GSCN ---
History of Present Illness Consult date: 04/16/24 Reason for Consult: abnormal left breast mammogram Requesting physician: Spenser Shah History of present illness: Dulce is a 43 year old female seen in consultation for Dr. Shah left breast mammogram. She had a bilateral mammogram performed on 03-30-2024. This was done at [facility]. The right breast did not reveal any lesions of concern. In the left breast there was a 6 mm ill-defined density in the upper quadrant. She does not feel anything of concern in either breast. She does have some changes in her right breast which were there since she had her 10-year-old son. She has not had any surgery on her breast. Are tender more so near her menstrual period. She has menstrual periods irregularly. She has not had any surgery on her breast. She is not complaining of any recent trauma or infection in the breast. Caffiene: [address] Mccain/day nicotine: 1/2 PPD since 16 years old chocolate: occasional BCP: used for 8 years hormones: none Family History: Mother: Cervical cancer Sister: Cervical cancer Maternal aunt: Bilateral mastectomy bilateral breast cancer Hormonal history: Menarche: 15 M2, breast fed: yes, age at first : 17 Surgical History: bilateral wrist scope on her right knee Medical History: chronic migraine HTN anxiety Social History: nicotine: 1/2 PPD alcohol: none drugs: none her of a drug overdose at the age of 48 Review of Systems - Constitutional Denies fever, Denies weight loss - EENT Eyes: denies blurred vision Ears: deny: decreased hearing, tinnitus Ears, nose, mouth and throat: Reports headache, Denies dysphagia - Breasts bilateral: as per HPI - Cardiovascular Denies chest pain, Denies shortness of breath - Respiratory Reports as per HPI, Denies cough - Gastrointestinal Reports as per HPI - Genitourinary Genitourinary: Denies dysuria, Denies hematuria Menstruation: Reports cycle variable - Musculoskeletal Musculoskeleta Comment(s): seeing neurologist for right leg pain - Integumentary Denies rash, Denies unusual bruising - Neurological Denies headaches, Denies syncope - Psychiatric Reports anxiety, Reports depression - Endocrine Reports fatigue, Reports weight change - Hematologic/Lymphatic Denies easy bleeding, Denies easy bruising - Allergic/Immunologic Reports as per HPI Past Medical History Past Medical History: Asthma, GERD/Reflux, Hyperlipidemia, Hypertension, Osteoarthritis (OA), Thyroid Disorder Additional Past Medical History / Comment(s): No problems with Asthma since 2009. Chronic left knee pain. Irregular menstral cycles. migraines. History of Any Multi-Drug Resistant Organisms: None Reported Past Surgical History: Orthopedic Surgery Additional Past Surgical History / Comment(s): Right ganglion cyst removed, bilateral carpal tunnel surgery, left knee arthroscopy. PAIN CLINIC PROCEDURES, Past Anesthesia/Blood Transfusion Reactions: No Reported Reaction Past Psychological History: Anxiety, Depression, PTSD Additional Psychological History / Comment(s): No current problems with these. Smoking Status: Current every day smoker Past Alcohol Use History: None Reported Additional Past Alcohol Use History / Comment(s): Has been smoking since age 17, 1 ppd, trying to quit, down to 10 cigarettes daily. Past Drug Use History: None Reported - Past Family History Mother Family Medical History: Cancer Additional Family Medical History / Comment(s): Ovarian cancer. Sister(s) Family Medical History: Cancer Additional Family Medical History / Comment(s): Ovarian cancer. Medications and Allergies Home Medications Medication Instructions Recorded Confirmed Type Omeprazole Magnesium [PriLOSEC OTC] 20 mg PO DAILY PRN 02/29/20 03/03/23 History Acetaminophen [Tylenol Extra 500 mg PO Q12HR PRN 02/13/22 03/03/23 History Strength] Aspirin/Acetaminophen/Caffeine 1 each PO Q12HR PRN 02/13/22 03/03/23 History [Excedrin Migraine Caplet] Ibuprofen [Motrin] 800 mg PO BID PRN 03/12/22 03/03/23 History Pantoprazole [Protonix] 40 mg PO DAILY 03/03/23 03/03/23 History Rosuvastatin [Crestor] 10 mg PO DAILY 03/03/23 03/03/23 History Vortioxetine Hydrobromide 5 mg PO DAILY 03/03/23 03/03/23 History [Trintellix] amLODIPine [Norvasc] 5 mg PO DAILY 03/03/23 03/03/23 History Allergies Allergy/AdvReac Type Severity Reaction Status Date / Time metronidazole [From Flagyl] Allergy Vomiting Verified 03/06/23 10:21 Metronidazole HCl Allergy Vomiting Verified 03/06/23 10:21 [From Flagyl] venlafaxine [From Effexor] Allergy Nausea & Verified 03/06/23 10:21 Vomiting & Diarrhea Surgical - Exam - General no distress - Eyes normal ocular movement - ENT no hearing loss - Neck trachea midline - Respiratory normal respiratory effort, clear to auscultation - Cardiovascular Rhythm: regular Heart Sounds: normal: S1, S2 - Integumentary normal turgor - Neurologic no disoriented, no combative - Musculoskeletal normal gait - Psychiatric oriented to time, oriented to person, oriented to place, speech is normal, memory intact Breast Exam: BRA: 38DD Inspection: multiple tatoos, bilateral grade 2 ptosis Palpation: Right breast: Multi positional exam fibrocystic changes, dense breast tissue, no discrete dominant masses or nodules of concern Right axilla: No adenopathy of concern Left breast: Multi positional exam fibrocystic changes, dense breast tissue, no discrete dominant masses or nodules of concern Left axilla: No adenopathy of concern Results Bilateral mammogram results reviewed Note Dr. Ni reviewed 04-01-2024 Assessment and Plan Assessment: Impression: Abnormal left breast mammogram Fibrocystic breast changes Anxiety/depression Plan: Left breast stereotactic core biopsy Risk and benefits of the procedure discussed with the patient and her fianc. Risk include but are not limited to bleeding, infection, reaction to the anesthetic. If the tissue acquisition is discordant then further tissue acquisition may be necessary. They understand and wish to proceed. CC: Dr. Shah
== END ==
LOC: WWCWWP 10:33
PROVIDERS: ATTEND Surgery
DX: R92.8 Other abnormal and inconclusive findings on diagnostic imaging of breast (principal); N60.11 Diffuse cystic mastopathy of right breast; N60.12 Diffuse cystic mastopathy of left breast; F41.9 Anxiety disorder, unspecified; F32.A Depression, unspecified; F17.210 Nicotine dependence, cigarettes, uncomplicated; Z88.1 Allergy status to other antibiotic agents; Z88.8 Allergy status to other drugs, medicaments and biological substances